=== PATIENT | male | born 1995 | race Caucasian/White ===

== ENCOUNTER 2018-10-20 20:31 | Emergency (ER) | payer OTHER ==
[~2018-10-20] VITALS: Ht 172.7 cm; Wt 74.1 kg
[~2018-10-20 20:31] MED LIST: IBUP-1542 PO
[2018-10-20 20:42] VITALS: BP 115/65; PULSE 70; RESP 16; Ht 172.7 cm; Wt 74.1 kg
== END 2018-10-20 23:44 | disposition home or self-care (01) ==
LOC: FTE 20:31
DX: N50.812 Left testicular pain (principal); N50.811 Right testicular pain
CPT/HCPCS: 76870; 81003; 82962; 87086; 87591; Z7502